=== PATIENT | female | born 1935 | race Two or more races ===

== ENCOUNTER 2024-07-18 10:54 | Inpatient (IN) | payer BC ==
[~2024-07-18] VITALS: Ht 157.5 cm; Wt 45.4 kg
[2024-07-18 11:47] LABS: BASOPHILS % (AUTO) 0.5 % (0.0-2.0); HEMATOCRIT 41 % (33-45); LYMPHOCYTES # (AUTO) 1.2 K/uL (0.8-4.8); LYMPHOCYTES % (AUTO) 14.5 % (20.0-44.0); MEAN CORPUSCULAR HEMOGLOBIN 30 PG (26.0-33.0); MEAN CORPUSCULAR HGB CONC 32 g/dl (31.0-36.0); MEAN CORPUSCULAR VOLUME 94 fL (82-100); MONOCYTES # (AUTO) 0.4 K/uL (0.1-1.30); NEUTROPHILS # (AUTO) 6.8 K/uL (1.8-8.9); PLATELET COUNT (AUTO) 220 K/uL (150-450); RED BLOOD CELL COUNT(AUTO) 4.34 MIL/uL (4.0-5.2); RED CELL DISTRIBUTION WIDTH 14.9 % (11.5-15.0); WHITE BLOOD COUNT (AUTO) 8.5 K/uL (4.3-11.0)
[2024-07-18 11:55] LABS: CALCIUM, SERUM 9.3 mg/dL (8.5-10.1); POTASSIUM 3.9 mmol/L (3.5-5.1)
[2024-07-18 12:00] LABS: INR 1.04 (0.91-1.10)
[2024-07-18] MEDS: IV NS 0.9% 500 ML BAG IV ONE (12:02)
[2024-07-18] MEDS ORDERED: ONDANSETRON HCL/PF 4 MG/2 ML VIAL IVP PRN (13:30)
[2024-07-18] MEDS ORDERED: MAG HYDROX/AL HYDROX/SIMETH 30 ML UDC PO PRN (13:30)
[2024-07-18] MEDS ORDERED: MAGNESIUM HYDROXIDE 30 ML UDC PO PRN (13:30)
[2024-07-18] MEDS ORDERED: Z GUARD REMEDY 4 OZ OINT TP PRN (13:30)
[2024-07-18] MEDS ORDERED: ZOLPIDEM TARTRATE 5 MG TABLET PO PRN (13:30)
[2024-07-18 16:00] VITALS: BP 135/40; TEMP 97.9; O2SAT 96
[2024-07-18] MEDS: IV NS 0.9% 1,000 ML IV PRN (17:27)
[2024-07-18 20:39] VITALS: BP 122/61; TEMP 98; O2SAT 96
[2024-07-19 06:38] LABS: BASOPHILS % (AUTO) 0.4 % (0.0-2.0); EOSINOPHILS % (AUTO) 0.2 % (0.0-6.0); HEMATOCRIT 35 % (33-45); HEMOGLOBIN 11.6 g/dL (11.5-14.8); LYMPHOCYTES # (AUTO) 1.1 K/uL (0.8-4.8); LYMPHOCYTES % (AUTO) 13.6 % (20.0-44.0); MEAN CORPUSCULAR HEMOGLOBIN 31 PG (26.0-33.0); MEAN CORPUSCULAR HGB CONC 33 g/dl (31.0-36.0); MEAN CORPUSCULAR VOLUME 92 fL (82-100); MONOCYTES # (AUTO) 0.7 K/uL (0.1-1.30); MONOCYTES % (AUTO) 8.8 % (2.0-12.0); NEUTROPHILS # (AUTO) 6.4 K/uL (1.8-8.9); PLATELET COUNT (AUTO) 187 K/uL (150-450); RED BLOOD CELL COUNT(AUTO) 3.75 MIL/uL (4.0-5.2); RED CELL DISTRIBUTION WIDTH 14.3 % (11.5-15.0); WHITE BLOOD COUNT (AUTO) 8.3 K/uL (4.3-11.0)
[2024-07-19 06:57] LABS: CALCIUM, SERUM 8.7 mg/dL (8.5-10.1); CREATININE 0.9 mg/dL (0.6-1.3); MAGNESIUM 2.2 mg/dL (1.8-2.4); PHOSPHORUS 2.2 mg/dL (2.5-4.9); POTASSIUM 3.5 mmol/L (3.5-5.1)
[2024-07-19 07:11] LABS: THYROID STIMULATING HORMONE 4.88 uIU/mL (0.358-3.74)
[2024-07-19] MEDS: PANTOPRAZOLE 40 MG VIAL IV SCH (08:34)
[2024-07-19] MEDS: NEUTRA PHOS 1 POWD.PACKET PO SCH (10:00)
[2024-07-19] MEDS ORDERED: ANESTHESIA TRAY IN PYXIS 1 EA TRAY MC ONE (10:59)
[2024-07-19] MEDS ORDERED: BUPIVACAINE 0.5 % PF 150 MG/30 ML VIAL ONE (14:00)
[2024-07-19] MEDS ORDERED: TRANEXAMIC ACID 1,000 MG/10 ML VIAL ONE (14:00)
[2024-07-19] MEDS ORDERED: POLYMYXIN B SULFATE 500,000 UNITS ONE (15:44)
[2024-07-19] MEDS ORDERED: FENTANYL PF 100MCG/2ML AMPUL ONE ×2 (16:29→17:26)
[2024-07-19] MEDS ORDERED: POTASSIUM CL. PREMIX PERIPHER. 50 ML IV SCH (17:00)
[2024-07-19] MEDS ORDERED: HEMOSTATIC MATRIX 8 ML 1 EACH PAD MC ONE (17:02)
[2024-07-19] MEDS: IV NS 0.9% 500 ML IV ONE (19:27)
[2024-07-19 21:00] VITALS: BP 130/68; TEMP 99.1; O2SAT 97
[2024-07-19] MEDS: ANCEF 1 GM/50 ML D5W IV SCH (23:19)
[2024-07-20] VITALS: BP 107/62; TEMP 97.5; O2SAT 96
[2024-07-20 05:00] VITALS: BP 119/64; TEMP 99; O2SAT 97
[2024-07-20 07:30] VITALS: BP 125/61; TEMP 99.3; O2SAT 96
[2024-07-20 07:45] LABS: BASOPHILS % (AUTO) 0.3 % (0.0-2.0); HEMATOCRIT 27 % (33-45); HEMOGLOBIN 9.2 g/dL (11.5-14.8); LYMPHOCYTES # (AUTO) 0.7 K/uL (0.8-4.8); LYMPHOCYTES % (AUTO) 7.4 % (20.0-44.0); MEAN CORPUSCULAR HEMOGLOBIN 31 PG (26.0-33.0); MEAN CORPUSCULAR HGB CONC 34 g/dl (31.0-36.0); MEAN CORPUSCULAR VOLUME 93 fL (82-100); MONOCYTES # (AUTO) 0.7 K/uL (0.1-1.30); MONOCYTES % (AUTO) 8.2 % (2.0-12.0); NEUTROPHILS # (AUTO) 7.6 K/uL (1.8-8.9); NEUTROPHILS % (AUTO) 84.1 % (43.0-81.0); PLATELET COUNT (AUTO) 179 K/uL (150-450); RED BLOOD CELL COUNT(AUTO) 2.95 MIL/uL (4.0-5.2); RED CELL DISTRIBUTION WIDTH 14.4 % (11.5-15.0); WHITE BLOOD COUNT (AUTO) 9.1 K/uL (4.3-11.0)
[2024-07-20 10:11] LABS: CALCIUM, SERUM 7.9 mg/dL (8.5-10.1); CREATININE 0.8 mg/dL (0.6-1.3); MAGNESIUM 2.1 mg/dL (1.8-2.4); PHOSPHORUS 2.8 mg/dL (2.5-4.9); POTASSIUM 3.3 mmol/L (3.5-5.1)
[2024-07-20] MEDS: HYDROCODONE/APAP 5/325MG TABLET PO PRN (13:45)
[2024-07-20 16:00] VITALS: BP 104/56; TEMP 99.7; O2SAT 96
[2024-07-20] MEDS: ACETAMINOPHEN 325 MG TABLET PO PRN (17:50)
[2024-07-20 17:52] LABS: HEMOGLOBIN 8.7 g/dL (11.5-14.8); RETICULOCYTE COUNT 0.7 % (0.6-2.5)
[2024-07-20] MEDS: ENOXAPARIN SODIUM 40 MG/0.4 ML DISP.SYRIN SQ SCH (19:00)
[2024-07-20 20:00] VITALS: BP 124/59; TEMP 99; O2SAT 92
[2024-07-21] VITALS: BP 141/77; TEMP 98.7; O2SAT 98
[2024-07-21] MEDS: POTASSIUM CL. PREMIX PERIPHER. 50 ML IV SCH ×2 (00:07→18:20)
[2024-07-21 04:59] VITALS: BP 153/79; TEMP 98.8; O2SAT 98
[2024-07-21 05:13] VITALS: BP 130/57; TEMP 98.8; O2SAT 97
[2024-07-21 06:59] LABS: FERRITIN 226 ng/mL (8-388)
[2024-07-21 07:26] LABS: BILIRUBIN,DIRECT 0.5 mg/dL (0.0-0.2); BILIRUBIN,TOTAL 1.1 mg/dL (0.2-1.0)
[2024-07-21 07:30] VITALS: BP 114/60; TEMP 98.8; O2SAT 96
[2024-07-21 07:32] LABS: BASOPHILS % (AUTO) 0.2 % (0.0-2.0); HEMATOCRIT 25 % (33-45); HEMOGLOBIN 8.5 g/dL (11.5-14.8); LYMPHOCYTES % (AUTO) 9.7 % (20.0-44.0); MEAN CORPUSCULAR HEMOGLOBIN 31 PG (26.0-33.0); MEAN CORPUSCULAR HGB CONC 34 g/dl (31.0-36.0); MEAN CORPUSCULAR VOLUME 92 fL (82-100); MONOCYTES # (AUTO) 0.8 K/uL (0.1-1.30); MONOCYTES % (AUTO) 8.1 % (2.0-12.0); NEUTROPHILS # (AUTO) 8.1 K/uL (1.8-8.9); PLATELET COUNT (AUTO) 185 K/uL (150-450); RED BLOOD CELL COUNT(AUTO) 2.72 MIL/uL (4.0-5.2); RED CELL DISTRIBUTION WIDTH 14.5 % (11.5-15.0); WHITE BLOOD COUNT (AUTO) 9.9 K/uL (4.3-11.0)
[2024-07-21 07:55] LABS: CALCIUM, SERUM 8.5 mg/dL (8.5-10.1); CREATININE 0.7 mg/dL (0.6-1.3); MAGNESIUM 2.3 mg/dL (1.8-2.4); PHOSPHORUS 1.8 mg/dL (2.5-4.9); POTASSIUM 3.3 mmol/L (3.5-5.1)
[2024-07-21] MEDS: POTASSIUM CHLORIDE 20 MEQ TAB.PRT.SR PO SCH (09:00)
[2024-07-21] MEDS: NEUTRA PHOS 1 POWD.PACKET PO SCH (09:00)
[2024-07-21] MEDS: PANTOPRAZOLE 40 MG TABLET.DR PO SCH (09:00)
[2024-07-21] MEDS ORDERED: IOHEXOL-300 100 ML VIAL IV ONE ×2 (12:01→12:39)
[2024-07-21] MEDS ORDERED: IV NS 0.9% 250 ML IV ONE (12:02)
[2024-07-21 12:36] LABS: IRON, SERUM 8 ug/dl (50-175)
[2024-07-21 12:55] LABS: TOTAL IRON BINDING CAPACITY 184 ug/dl (250-450)
[2024-07-21 16:00] VITALS: BP 119/62; TEMP 99.5; O2SAT 96
[2024-07-21 16:23] LABS: ALBUMIN 2.2 g/dL (3.4-5.0); BILIRUBIN,TOTAL 0.8 mg/dL (0.2-1.0); CALCIUM, SERUM 8.8 mg/dL (8.5-10.1); CREATININE 0.8 mg/dL (0.6-1.3); TOTAL PROTEIN, SERUM 6.1 g/dL (6.4-8.2)
[2024-07-21] MEDS ORDERED: POTASSIUM CHLORIDE 10 MEQ/50 ML PREMIXED IVPB FOR PERIPHERAL LINE IV ONE (17:00)
[2024-07-21 17:32] LABS: HEMOGLOBIN 8.4 g/dL (11.5-14.8)
[2024-07-21 19:48] LABS: INR 1.09 (0.91-1.10); PARTIAL THROMBOPLASTIN TIME 33.5 SEC (24.3-34.3); PROTHROMBIN TIME 11.5 SECS (9.2-11.1)
[2024-07-21 20:00] VITALS: BP 136/54; TEMP 98.4; O2SAT 95
[2024-07-21] MEDS: HEPARIN INFUSION/D5W 500 ML IV PRN (21:51)
[2024-07-22] VITALS (7 sets, daily range): BP systolic 98–138; BP diastolic 46–95; TEMP 97.7–99.7; O2SAT 93–98
[2024-07-22] MEDS ORDERED: POTASSIUM CL. PREMIX PERIPHER. 50 ML ONE ×2 (00:08)
[2024-07-22 06:37] LABS: BASOPHILS % (AUTO) 0.2 % (0.0-2.0); EOSINOPHILS % (AUTO) 0.1 % (0.0-6.0); HEMATOCRIT 24 % (33-45); LYMPHOCYTES # (AUTO) 1.1 K/uL (0.8-4.8); MEAN CORPUSCULAR HEMOGLOBIN 31 PG (26.0-33.0); MEAN CORPUSCULAR HGB CONC 34 g/dl (31.0-36.0); MEAN CORPUSCULAR VOLUME 90 fL (82-100); MONOCYTES # (AUTO) 0.7 K/uL (0.1-1.30); MONOCYTES % (AUTO) 7.6 % (2.0-12.0); NEUTROPHILS # (AUTO) 7.3 K/uL (1.8-8.9); NEUTROPHILS % (AUTO) 80.1 % (43.0-81.0); PLATELET COUNT (AUTO) 223 K/uL (150-450); RED BLOOD CELL COUNT(AUTO) 2.61 MIL/uL (4.0-5.2); RED CELL DISTRIBUTION WIDTH 14.6 % (11.5-15.0); WHITE BLOOD COUNT (AUTO) 9.1 K/uL (4.3-11.0)
[2024-07-22 06:52] LABS: INR 1.05 (0.91-1.10); PARTIAL THROMBOPLASTIN TIME 31.3 SEC (24.3-34.3); PROTHROMBIN TIME 11.1 SECS (9.2-11.1)
[2024-07-22 06:54] LABS: CALCIUM, SERUM 9.3 mg/dL (8.5-10.1); CREATININE 0.7 mg/dL (0.6-1.3); MAGNESIUM 2.5 mg/dL (1.8-2.4); PHOSPHORUS 1.8 mg/dL (2.5-4.9); POTASSIUM 4.8 mmol/L (3.5-5.1)
[2024-07-22 08:07] LABS: FOLIC ACID 10.1 ng/mL (>3.0)
[2024-07-22 10:09] LABS: CANCER AG, 125 19.7 U/mL (0.0-38.1)
[2024-07-22 11:36] LABS: INR 1.09 (0.91-1.10); PROTHROMBIN TIME 11.5 SECS (9.2-11.1)
[2024-07-22] MEDS: ENOXAPARIN SODIUM 40 MG/0.4 ML DISP.SYRIN SQ SCH (12:04)
[2024-07-22 13:09] LABS: FREE KAPPA LT CHAINS SERUM 31.4 mg/L (3.3-19.4); FREE LAMBDA LT CHAIN SERUM 29.5 mg/L (5.7-26.3); IMMUNOGLOBULIN A, SERUM 375 mg/dL (64-422); IMMUNOGLOBULIN G, SERUM 1070 mg/dL (586-1602); IMMUNOGLOBULIN M, SERUM 28 mg/dL (26-217); KAPPA/LAMBDA RATIO SERUM 1.06 (0.26-1.65)
[2024-07-22] MEDS: SOD FERRIC GLUC 125 MG in IV NS 0.9% 100 ML IV SCH (14:40)
[2024-07-22 15:03] LABS: HEMOGLOBIN 7.8 g/dL (11.5-14.8)
[2024-07-22] MEDS: K PHOS NEUTRAL 250 MG TABLET PO ONE (16:59)
[2024-07-22] MEDS ORDERED: diphenhydrAMINE HCL 50 MG/ML VIAL ONE (21:14)
[2024-07-22] MEDS: diphenhydrAMINE HCL 50 MG/ML VIAL IV ONE (21:15)
[2024-07-22] MEDS: ACETAMINOPHEN 325 MG TABLET PO ONE (21:16)
[2024-07-23 01:30] VITALS: BP 110/46; TEMP 98.4
[2024-07-23 07:00] VITALS: BP 103/57; TEMP 97.9; O2SAT 95
[2024-07-23 07:44] LABS: BASOPHILS % (AUTO) 0.6 % (0.0-2.0); EOSINOPHILS # (AUTO) 0.2 K/uL (0.0-0.7); EOSINOPHILS % (AUTO) 4.3 % (0.0-6.0); HEMATOCRIT 29 % (33-45); HEMOGLOBIN 9.8 g/dL (11.5-14.8); LYMPHOCYTES % (AUTO) 17.1 % (20.0-44.0); MEAN CORPUSCULAR HEMOGLOBIN 31 PG (26.0-33.0); MEAN CORPUSCULAR HGB CONC 35 g/dl (31.0-36.0); MEAN CORPUSCULAR VOLUME 89 fL (82-100); MONOCYTES # (AUTO) 0.5 K/uL (0.1-1.30); PLATELET COUNT (AUTO) 250 K/uL (150-450); RED BLOOD CELL COUNT(AUTO) 3.22 MIL/uL (4.0-5.2); RED CELL DISTRIBUTION WIDTH 14.6 % (11.5-15.0); WHITE BLOOD COUNT (AUTO) 5.7 K/uL (4.3-11.0)
[2024-07-23 08:16] LABS: CALCIUM, SERUM 8.5 mg/dL (8.5-10.1); CREATININE 0.7 mg/dL (0.6-1.3); MAGNESIUM 2.4 mg/dL (1.8-2.4); PHOSPHORUS 2.1 mg/dL (2.5-4.9); POTASSIUM 3.3 mmol/L (3.5-5.1)
[2024-07-23] MEDS: POTASSIUM CL. PREMIX PERIPHER. 50 ML IV SCH (10:41)
[2024-07-23 16:00] VITALS: BP 113/59; TEMP 99.5; O2SAT 96
[2024-07-23] MEDS: K PHOS NEUTRAL 250 MG TABLET PO ONE (16:50)
[2024-07-23 20:00] VITALS: BP 108/57; TEMP 98.1; O2SAT 96
[2024-07-24 07:11] LABS: BASOPHILS % (AUTO) 0.4 % (0.0-2.0); EOSINOPHILS # (AUTO) 0.1 K/uL (0.0-0.7); EOSINOPHILS % (AUTO) 0.8 % (0.0-6.0); HEMATOCRIT 31 % (33-45); HEMOGLOBIN 10.6 g/dL (11.5-14.8); LYMPHOCYTES # (AUTO) 0.6 K/uL (0.8-4.8); MEAN CORPUSCULAR HEMOGLOBIN 30 PG (26.0-33.0); MEAN CORPUSCULAR HGB CONC 34 g/dl (31.0-36.0); MEAN CORPUSCULAR VOLUME 88 fL (82-100); MONOCYTES # (AUTO) 0.6 K/uL (0.1-1.30); MONOCYTES % (AUTO) 8.4 % (2.0-12.0); NEUTROPHILS # (AUTO) 5.4 K/uL (1.8-8.9); NEUTROPHILS % (AUTO) 81.4 % (43.0-81.0); PLATELET COUNT (AUTO) 322 K/uL (150-450); RED BLOOD CELL COUNT(AUTO) 3.52 MIL/uL (4.0-5.2); RED CELL DISTRIBUTION WIDTH 14.7 % (11.5-15.0); WHITE BLOOD COUNT (AUTO) 6.7 K/uL (4.3-11.0)
[2024-07-24 07:18] LABS: OCCULT BLOOD STOOL NEGATIVE (NEGATIVE)
[2024-07-24 07:59] LABS: CALCIUM, SERUM 9.3 mg/dL (8.5-10.1); CREATININE 0.8 mg/dL (0.6-1.3); MAGNESIUM 2.2 mg/dL (1.8-2.4); POTASSIUM 3.4 mmol/L (3.5-5.1)
[2024-07-24 08:00] VITALS: BP 110/69; TEMP 99; O2SAT 97
[2024-07-24] MEDS: POTASSIUM CHLORIDE 20 MEQ POWDER PACKET PO ONE (10:22)
[2024-07-24 13:06] LABS: *SPE A/G RATIO 0.7 (0.7-1.7); *SPE ALBUMIN 2.3 g/dL (2.9-4.4); *SPE ALPHA-1-GLOBULIN 0.5 g/dL (0.0-0.4); *SPE ALPHA-2-GLOBULIN 0.8 g/dL (0.4-1.0); *SPE BETA GLOBULIN 1.2 g/dL (0.7-1.3); *SPE GLOBULIN, TOTAL 3.4 g/dL (2.2-3.9); *SPE M-SPIKE Not Observed g/dL (Not Observed); *SPE PROTEIN TOTAL 5.7 g/dL (6.0-8.5); *SPEGAMMA GLOBULIN 0.9 g/dL (0.4-1.8)
[2024-07-24 16:00] VITALS: BP 116/66; TEMP 99.9; O2SAT 98
[2024-07-24] MEDS: NEUTRA PHOS 1 POWD.PACKET PO ONE (17:23)
[2024-07-24 20:00] VITALS: BP 105/92; TEMP 97.5; O2SAT 100
[2024-07-25 07:17] LABS: BASOPHILS # (AUTO) 0.1 K/uL (0.0-0.2); BASOPHILS % (AUTO) 0.8 % (0.0-2.0); EOSINOPHILS # (AUTO) 0.3 K/uL (0.0-0.7); HEMATOCRIT 32 % (33-45); LYMPHOCYTES # (AUTO) 1.5 K/uL (0.8-4.8); LYMPHOCYTES % (AUTO) 21.7 % (20.0-44.0); MEAN CORPUSCULAR HEMOGLOBIN 31 PG (26.0-33.0); MEAN CORPUSCULAR HGB CONC 34 g/dl (31.0-36.0); MEAN CORPUSCULAR VOLUME 90 fL (82-100); MONOCYTES # (AUTO) 0.6 K/uL (0.1-1.30); NEUTROPHILS # (AUTO) 4.4 K/uL (1.8-8.9); NEUTROPHILS % (AUTO) 64.5 % (43.0-81.0); PLATELET COUNT (AUTO) 356 K/uL (150-450); RED CELL DISTRIBUTION WIDTH 14.6 % (11.5-15.0); WHITE BLOOD COUNT (AUTO) 6.9 K/uL (4.3-11.0)
[2024-07-25 07:30] VITALS: BP 112/56; TEMP 98.6; O2SAT 100
[2024-07-25 08:00] LABS: CALCIUM, SERUM 8.9 mg/dL (8.5-10.1); CREATININE 0.7 mg/dL (0.6-1.3); MAGNESIUM 2.4 mg/dL (1.8-2.4); PHOSPHORUS 2.9 mg/dL (2.5-4.9); POTASSIUM 3.6 mmol/L (3.5-5.1)
[2024-07-25] MEDS ORDERED: APIX2.5T PO (10:55)
[2024-07-25 16:00] VITALS: BP 95/59; TEMP 97.5; O2SAT 97
[2024-07-25 20:00] VITALS: BP_SYST 96; BP_SYST 98; BP_DIAS 56; BP_DIAS 58; TEMP 99.1; O2SAT 96
[2024-07-26 07:30] VITALS: BP 94/52; TEMP 98.4; O2SAT 98
[2024-07-26 16:00] VITALS: BP 97/63; TEMP 98.6; O2SAT 96
[2024-07-26 20:00] VITALS: BP 91/51; TEMP 98.4; O2SAT 97
[2024-07-27 07:29] LABS: BASOPHILS % (AUTO) 0.6 % (0.0-2.0); EOSINOPHILS # (AUTO) 0.2 K/uL (0.0-0.7); EOSINOPHILS % (AUTO) 2.1 % (0.0-6.0); HEMATOCRIT 29 % (33-45); HEMOGLOBIN 9.6 g/dL (11.5-14.8); LYMPHOCYTES # (AUTO) 1.1 K/uL (0.8-4.8); LYMPHOCYTES % (AUTO) 12.5 % (20.0-44.0); MEAN CORPUSCULAR HEMOGLOBIN 31 PG (26.0-33.0); MEAN CORPUSCULAR HGB CONC 34 g/dl (31.0-36.0); MEAN CORPUSCULAR VOLUME 90 fL (82-100); MONOCYTES # (AUTO) 0.8 K/uL (0.1-1.30); MONOCYTES % (AUTO) 9.6 % (2.0-12.0); NEUTROPHILS # (AUTO) 6.6 K/uL (1.8-8.9); NEUTROPHILS % (AUTO) 75.2 % (43.0-81.0); PLATELET COUNT (AUTO) 355 K/uL (150-450); RED BLOOD CELL COUNT(AUTO) 3.16 MIL/uL (4.0-5.2); RED CELL DISTRIBUTION WIDTH 14.6 % (11.5-15.0); WHITE BLOOD COUNT (AUTO) 8.7 K/uL (4.3-11.0)
[2024-07-27 08:00] VITALS: BP 90/50; TEMP 98.6; O2SAT 96
[2024-07-27] MEDS ORDERED: [UNRECOGNIZED DRUG - CODE] IV (12:00)
[2024-07-27] MEDS ORDERED: ENOX40DI SQ (12:00)
[2024-07-27] MEDS ORDERED: HEPA100D33 SQ (12:01)
[2024-07-27 16:00] VITALS: BP 99/51; TEMP 99; O2SAT 98
[2024-07-27] MEDS ORDERED: APIXABAN 2.5 MG TABLET PO SCH (17:00)
[2024-07-27] MEDS ORDERED: HEPARIN SODIUM, PORCINE 5000 UNITS/1 ML VIAL SQ SCH (21:00)
== END 2024-07-27 18:55 | DRG 521 ==
LOC: ER 10:54 → MED 14:00 → TELE 07-19 20:47 → MED 07-22 06:39
PROVIDERS: ADMIT Student in an Organized Health Care Education/Training Program; ATTEND Nurse Practitioner Acute Care
PROC: 0SRS0J9 Replacement of Left Hip Joint, Femoral Surface with Synthetic Substitute, Cemented, Open Approach (ICD-10-PCS; principal; 2024-07-19)
PROC: 5A2204Z Restoration of Cardiac Rhythm, Single (ICD-10-PCS; 2024-07-19)
DX: M80.052A Age-related osteoporosis with current pathological fracture, left femur, initial encounter for fracture (principal); I26.99 Other pulmonary embolism without acute cor pulmonale; E44.0 Moderate protein-calorie malnutrition; I97.791 Other intraoperative cardiac functional disturbances during other surgery; Z68.1 Body mass index [BMI] 19.9 or less, adult; W18.30XA Fall on same level, unspecified, initial encounter; F02.C0 Dementia in other diseases classified elsewhere, severe, without behavioral disturbance, psychotic disturbance, mood disturbance, and anxiety; G30.9 Alzheimer's disease, unspecified; N83.202 Unspecified ovarian cyst, left side; I48.91 Unspecified atrial fibrillation; D50.9 Iron deficiency anemia, unspecified; Y93.9 Activity, unspecified; Y92.009 Unspecified place in unspecified non-institutional (private) residence as the place of occurrence of the external cause; N83.201 Unspecified ovarian cyst, right side; E87.6 Hypokalemia
CPT/HCPCS: 36415; 71045-TC; 71260-TC; 72110-TC; 72170-TC; 72192-TC; 73502; 73552; 80048-TC; 80053-TC; 82247-TC; 82248-TC; 82272-TC; 82378; 82607-TC; 82728-TC; 82784; 83010; 83540-TC; 83615-TC; 83735-TC; 84100-TC; 84155; 84165; 84439-TC; 84443-TC; 85025-TC; 85027-TC; 85045-TC; 85610-TC; 85730-TC; 86304; 86334; 86850-TC; 93307-TC; 97110-TC; 97116-TC; 97530-TC; 97535-TC; A4217; A4223; C1713; C1776; G0378; J0330; J0690; J1200; J1644; J1650; J2470; J2704; J2916; J3010; J3480; J3490; J7030; J7040; J7050; J7060; P9016; Q9967